=== PATIENT | female | born 1975 | race Caucasian/White ===

== ENCOUNTER 2017-10-05 15:25 | Emergency (ER) | payer OTHER ==
[~2017-10-05] VITALS: Ht 162.6 cm; Wt 93.4 kg
[2017-10-05 15:30] VITALS: Ht 162.6 cm; Wt 93.4 kg
[2017-10-05 17:24] VITALS: BP 118/64
== END 2017-10-05 17:24 | disposition home or self-care (01) ==
LOC: ED 15:25
DX: S62.305A Unspecified fracture of fourth metacarpal bone, left hand, initial encounter for closed fracture (principal); W01.0XXA Fall on same level from slipping, tripping and stumbling without subsequent striking against object, initial encounter; Y93.89 Activity, other specified; Y92.89 Other specified places as the place of occurrence of the external cause; Y99.8 Other external cause status
CPT/HCPCS: Q0092